=== PATIENT | male | born 1985 | race Caucasian/White ===

== ENCOUNTER 2021-11-01 19:47 | Emergency (ER) | payer OTHER, SELFPAY ==
[2021-11-01 19:50] VITALS: BP 149/87; PULSE 89; RESP 18; TEMP 37.9; O2SAT 98
--- NOTE | 2021-11-01 20:21 | ED.GENADULT ---
HPI - General Adult General Chief complaint: Upper Respiratory Infection Stated complaint: COLD SYMPTOMS Time Seen by Provider: 11/01/21 20:11 History of Present Illness HPI narrative: Patient is a 36-year-old gentleman presents emerged from with chief complaint of nasal congestion sinus pain and fever. The patient reports that he had COVID back in June and reports that for the last several days he has had swelling in the soft tissue over his nose and also his maxillary sinuses. The patient reports that when he wakes up he has a lot of congestion in his nose and has had purulent drainage from his nose. Patient denies sore throat reports these have body aches and chills and has had a fever at home. Related Data Allergies Allergy/AdvReac Type Severity Reaction Status Date / Time Penicillins Allergy Unknown Verified 11/01/21 19:54 Review of Systems Review of Systems: A 10 system review of systems was completed on the patient and is negative except for what is stated in the HPI. Nursing and ancillary documentation was reviewed. Exam Narrative: GENERAL: Well-appearing, well-nourished, and in no acute distress. HEAD: Normocephalic, atraumatic. EYES: PERRLA and EOMI. ENT: Purulent drainage in the right nostril. No epistaxis. Mucous membranes moist. Tenderness to palpation bilaterally maxillary sinus areas And over the bridge of the nose. NECK: Supple. CHEST: Clear to auscultation. No respiratory distress. HEART: Regular rate and rhythm. No murmur heard. Normal peripheral pulses. ABDOMEN: Soft, nontender, nondistended, normal active bowel sounds. EXTREMITIES: Normal range of motion. No edema. SKIN: Warm, dry, no rash. NEURO: No focal deficits. Alert and oriented x3. PSYCH: Normal mood and affect. Course Vital Signs Vital signs: Vital Signs Temperature 37.9 C H 11/01/21 19:50 Pulse Rate 89 11/01/21 19:50 Respiratory Rate 18 11/01/21 19:50 Blood Pressure 149/87 H 11/01/21 19:50 Pulse Oximetry 98 11/01/21 19:50 Oxygen Delivery Room Air 11/01/21 19:50 Temperature 37.9 C H 11/01/21 19:50 Pulse Rate 89 11/01/21 19:50 Respiratory Rate 18 11/01/21 19:50 Blood Pressure 149/87 H 11/01/21 19:50 Pulse Oximetry 98 11/01/21 19:50 Oxygen Delivery Room Air 11/01/21 19:50 Medical Decision Making Vital Signs Vital Signs: Vital Signs Temperature 37.9 C H 11/01/21 19:50 Pulse Rate 89 11/01/21 19:50 Respiratory Rate 18 11/01/21 19:50 Blood Pressure 149/87 H 11/01/21 19:50 Pulse Oximetry 98 11/01/21 19:50 Oxygen Delivery Room Air 11/01/21 19:50 Temperature 37.9 C H 11/01/21 19:50 Pulse Rate 89 11/01/21 19:50 Respiratory Rate 18 11/01/21 19:50 Blood Pressure 149/87 H 11/01/21 19:50 Pulse Oximetry 98 11/01/21 19:50 Oxygen Delivery Room Air 11/01/21 19:50 Discharge Plan Discharge Clinical Impression: Sinusitis Patient Disposition: Home, Self-Care Condition: Stable Instructions: Antibiotic Form, Sinusitis (ED) Prescriptions: New cefdinir 300 mg capsule 300 mg PO Q12H 10 Days Qty: 20 0RF prednisone 20 mg tablet 40 mg PO DAILY 5 Days Qty: 10 0RF Follow-up/Referrals: PHYSICIAN NOT ON STAFF,NONSTAFF [Primary Care Provider] - Time of Disposition: :23
[2021-11-01] MEDS: ACETAMINOPHEN 500 MG TABLET 1000 MG PO (20:28)
[2021-11-01] MEDS: predniSONE 20 MG TABLET 60 MG PO (20:29)
[2021-11-01] MEDS: CEFDINIR 300 MG CAPSULE PO (20:35)
== END 2021-11-01 20:50 | disposition home or self-care (01) ==
PROVIDERS: Emergency Provider Emergency Medicine
DX: J32.9 Chronic sinusitis, unspecified (principal)
CPT/HCPCS: 99283; A9270; J7512